=== PATIENT | female | born 2000 | race African-American/Black ===

== ENCOUNTER 2021-04-26 11:42 | Emergency (ER) | payer MEDICAID ==
[~2021-04-26] VITALS: Ht 167.6 cm; Wt 76.0 kg
[2021-04-26] MEDS ORDERED: LIDOCAINE 5% PATCH TOP SCH (13:00)
[2021-04-26] MEDS ORDERED: PANTOPRAZOLE SODIUM 40 MG/VIAL IV ONE (13:00)
[2021-04-26] MEDS ORDERED: ONDANSETRON HCL 4MG/2ML INJ IV ONE (13:00)
[2021-04-26] MEDS ORDERED: MORPHINE SULFATE 4 MG/ML CPJ (NOT FOR IM USE) IV ONE (13:00)
[2021-04-26] MEDS ORDERED: TOPUD PO (15:07)
[2021-04-26] MEDS ORDERED: IBUP-2028 MT (15:09)
[2021-04-26] MEDS ORDERED: LIDO1ADH23 TP (15:09)
[2021-04-26 15:10] LABS: BASOPHILS % 0.4 % (0.0-2.0); EOSINOPHILS % 0.2 % (0.0-5.0); HEMATOCRIT. 33.3 % (36.0-48.0); HEMOGLOBIN. 10.6 g/dL (12.0-16.0); LYMPHOCYTES % 19.9 % (20.0-50.0); MEAN CORPUSCULAR HEMOGLOBIN 23.3 pg (28.0-32.0); MEAN CORPUSCULAR VOLUME 73.3 fL (81.0-99.0); MEAN PLATELET VOLUME 9.5 fl (7.4-10.4); MONOCYTES % 8.5 % (2.0-8.0); PLATELET 233 x1000/uL (130-400); RED BLOOD CELL COUNT 4.54 mill/uL (4.2-5.4); RED CELL DISTRIBUTION WIDTH 12.8 % (11.6-14.6)
[2021-04-26 15:20] LABS: CHLORIDE 106 mEq/L (98-107)
[2021-04-26 15:23] LABS: HCG SCREEN POSITIVE
[2021-04-26 16:25] VITALS: BP 104/60
== END 2021-04-26 17:00 | disposition home or self-care (01) ==
LOC: ER 12:17
DX: O26.891 Other specified pregnancy related conditions, first trimester (principal); N83.292 Other ovarian cyst, left side; Z3A.08 8 weeks gestation of pregnancy
CPT/HCPCS: 36415; 71046; 76700; 76801; 76817; 80053; 83690; 84703; 85025; 86850; 86900; 86901; 93005; 96374; 96375; 99285; C9113; J2270; J2405

== ENCOUNTER 2021-07-05 | Emergency (ER) | payer MEDICAID ==
[~2021-07-05] VITALS: Ht 167.6 cm; Wt 86.0 kg
[~2021-07-05] MED LIST: LIDO1ADH23 TP; TOPUD PO
[2021-07-05 00:50] VITALS: BP 107/58
[2021-07-05] MEDS ORDERED: ACETAMINOPHEN 325MG TABLET PO ONE (01:00)
[2021-07-05 01:32] LABS: BASOPHILS % 0.2 % (0.0-2.0); EOSINOPHILS % 0.7 % (0.0-5.0); HEMATOCRIT. 32.1 % (36.0-48.0); HEMOGLOBIN. 10.6 g/dL (12.0-16.0); MEAN CORPUSCULAR HEMOGLOBIN 24.3 pg (28.0-32.0); MEAN CORPUSCULAR VOLUME 73.3 fL (81.0-99.0); MEAN PLATELET VOLUME 9.4 fl (7.4-10.4); MONOCYTES % 7.6 % (2.0-8.0); NEUTROPHILS % 69.5 % (40.0-76.0); PLATELET 198 x1000/uL (130-400); RED BLOOD CELL COUNT 4.38 mill/uL (4.2-5.4); RED CELL DISTRIBUTION WIDTH 13.1 % (11.6-14.6)
[2021-07-05 01:35] LABS: CHLORIDE 106 mEq/L (98-107)
[2021-07-05 01:46] LABS: CLARITY URINE TURBID (CLEAR); COLOR URINE YELLOW (YELLOW); KETONES URINE NEGATIVE (NEGATIVE); LEUKOCYTE ESTERASE URINE 2+ (NEGATIVE); NITRITE URINE NEGATIVE (NEGATIVE); OCCULT BLOOD URINE NEGATIVE (NEGATIVE); PROTEIN URINE NEGATIVE (NEGATIVE); SPECIFIC GRAVITY URINE 1.018 (1.005-1.030)
[2021-07-05 01:58] LABS: B-HCG QUANTITATIVE 17159 mIU/mL (<3)
[2021-07-05] MEDS ORDERED: CEPH500C2 MT (02:30)
== END 2021-07-05 03:10 | disposition home or self-care (01) ==
LOC: ER
DX: O26.892 Other specified pregnancy related conditions, second trimester (principal); O23.12 Infections of bladder in pregnancy, second trimester; Z3A.18 18 weeks gestation of pregnancy
CPT/HCPCS: 36415; 76805; 80053; 81003; 84702; 85025; 99284

== ENCOUNTER 2021-08-19 11:59 | Observation (INO) | payer MEDICAID ==
[~2021-08-19] VITALS: Ht 167.6 cm; Wt 85.7 kg
[~2021-08-19 11:59] MED LIST changes: +CEPH500C2 MT
[2021-08-19 13:11] LABS: CLARITY URINE CLEAR (CLEAR); COLOR URINE YELLOW (YELLOW); KETONES URINE NEGATIVE (NEGATIVE); LEUKOCYTE ESTERASE URINE NEGATIVE (NEGATIVE); NITRITE URINE NEGATIVE (NEGATIVE); OCCULT BLOOD URINE NEGATIVE (NEGATIVE); PH URINE 7.5 (4.5-8.0); PROTEIN URINE NEGATIVE (NEGATIVE); SPECIFIC GRAVITY URINE 1.014 (1.005-1.030); UROBILINOGEN URINE 0.2 E.U./dL (0.2-1.0)
[2021-08-19] MEDS: ACETAMINOPHEN 500MG TABLET PO NR (14:14)
== END 2021-08-19 15:00 | disposition home or self-care (01) ==
LOC: 8 EST LDRP 11:59
PROVIDERS: ADMIT Obstetrics & Gynecology; ATTEND Obstetrics & Gynecology
DX: O26.892 Other specified pregnancy related conditions, second trimester (principal); R10.30 Lower abdominal pain, unspecified; O62.9 Abnormality of forces of labor, unspecified; Z3A.24 24 weeks gestation of pregnancy
CPT/HCPCS: 59025; 76805; 81003; G0378; 99281; G0379

== ENCOUNTER 2021-09-12 15:15 | Observation (INO) | payer MEDICAID ==
[~2021-09-12] VITALS: Ht 167.6 cm; Wt 89.8 kg
[2021-09-12] MEDS ORDERED: PNV1TABL76 MT (16:13)
[2021-09-12] MEDS ORDERED: ONDANSETRON HCL 4MG/2ML INJ IV PRN (16:30)
[2021-09-12] MEDS ORDERED: LACTATED RINGERS 1,000 ML IV NR (16:30)
[2021-09-12 17:06] LABS: CHLORIDE 106 mEq/L (98-107)
[2021-09-12 17:11] LABS: HEMOGLOBIN. 11.9 g/dL (12.0-16.0); MEAN CORPUSCULAR HEMOGLOBIN 23.5 pg (28.0-32.0); MEAN CORPUSCULAR VOLUME 72.9 fL (81.0-99.0); MEAN PLATELET VOLUME 9.5 fl (7.4-10.4); PLATELET 187 x1000/uL (130-400); RED BLOOD CELL COUNT 5.08 mill/uL (4.2-5.4); RED CELL DISTRIBUTION WIDTH 13.1 % (11.6-14.6)
[2021-09-12 17:59] LABS: PLATELET ESTIMATE NORMAL
== END 2021-09-12 19:25 | disposition home or self-care (01) ==
LOC: 8EST 15:15 → 8 EST LDRP 16:07
PROVIDERS: ADMIT Obstetrics & Gynecology; ATTEND Obstetrics & Gynecology
DX: O21.2 Late vomiting of pregnancy (principal); O26.893 Other specified pregnancy related conditions, third trimester; R10.13 Epigastric pain; Z3A.28 28 weeks gestation of pregnancy
CPT/HCPCS: 36415; 59025; 80053; 85025; 96361; 96374; G0378; J2405; 99281

== ENCOUNTER 2021-10-24 23:08 | Observation (INO) | payer MEDICAID, MEDICARE ==
[~2021-10-24] VITALS: Ht 170.2 cm; Wt 92.5 kg
[~2021-10-24 23:08] MED LIST changes: -CEPH500C2 MT; -LIDO1ADH23 TP; +PNV1TABL76 MT; -TOPUD PO
[2021-11-02] MEDS ORDERED: TOPUD PO (07:37)
[2021-12-02] MEDS ORDERED: IBUP-2030 PO (06:00)
== END 2021-10-25 02:30 | disposition home or self-care (01) ==
LOC: 8 EST LDRP 23:08
PROVIDERS: ADMIT Obstetrics & Gynecology; ATTEND Obstetrics & Gynecology
DX: O26.853 Spotting complicating pregnancy, third trimester (principal); O62.9 Abnormality of forces of labor, unspecified; Z3A.34 34 weeks gestation of pregnancy
CPT/HCPCS: 59025; 76815; 76818; 99281; G0378

== ENCOUNTER 2022-05-23 15:26 | Emergency (ER) | payer MEDICAID ==
[~2022-05-23] VITALS: Ht 167.6 cm; Wt 80.0 kg
[~2022-05-23 15:26] MED LIST changes: +IBUP-2030 PO; +TOPUD PO
[2022-05-23 15:34] VITALS: BP 106/52
[2022-05-23] MEDS ORDERED: IBUP-2028 PO (17:27)
== END 2022-05-23 17:55 | disposition home or self-care (01) ==
LOC: ER 15:26
DX: S09.90XA Unspecified injury of head, initial encounter (principal); W22.8XXA Striking against or struck by other objects, initial encounter; Y93.89 Activity, other specified; Y92.89 Other specified places as the place of occurrence of the external cause; Y99.8 Other external cause status
CPT/HCPCS: 81025; 99284

== ENCOUNTER 2022-11-18 22:55 | Emergency (ER) | payer MEDICAID, OTHER ==
[~2022-11-18] VITALS: Ht 167.6 cm; Wt 88.0 kg
[~2022-11-18 22:55] MED LIST changes: +IBUP-2028 PO
[2022-11-18 23:06] VITALS: O2SAT 98
[2022-11-19 00:45] VITALS: BP 117/49
[2022-11-19] MEDS ORDERED: KETOROLAC 30MG/ML VIAL IM ONE (00:45)
[2022-11-19] MEDS ORDERED: CYCL10TA21 MT (02:21)
[2022-11-19] MEDS ORDERED: NAP5EC MT (02:21)
[2022-11-19 02:37] VITALS: PULSE 82; RESP 18; TEMP 99
== END 2022-11-19 02:38 | disposition home or self-care (01) ==
LOC: ER 23:37
DX: M25.512 Pain in left shoulder (principal)
CPT/HCPCS: 99283; 81025; 73030; 96372; J1885

== ENCOUNTER 2023-12-31 14:48 | Emergency (ER) | payer OTHER ==
[~2023-12-31] VITALS: Ht 165.1 cm; Wt 68.0 kg
[~2023-12-31 14:48] MED LIST changes: +CYCL10TA21 MT; +NAP5EC MT
[2023-12-31 14:58] VITALS: O2SAT 97
[2023-12-31] MEDS: METHYLPREDNISOLONE SOD SUCC 125MG/2ML (ACT-O-VIAL) IM STA (16:17)
[2023-12-31] MEDS: FAMOTIDINE 20MG TABLET PO ONE (16:17)
[2023-12-31] MEDS: DIPHENHYDRAMINE 50MG/ML VIAL IM ONE (16:17)
[2023-12-31 16:30] VITALS: BP 114/71; PULSE 83; RESP 19; TEMP 98.3
[2023-12-31] MEDS ORDERED: P50 MT (16:32)
[2023-12-31] MEDS ORDERED: FAMO40TA7 MT (16:32)
[2023-12-31] MEDS ORDERED: DIPH25CA83 PO (16:32)
== END 2023-12-31 16:40 | disposition home or self-care (01) ==
LOC: ER 14:48
DX: L50.9 Urticaria, unspecified (principal); L29.9 Pruritus, unspecified; Z79.899 Other long term (current) drug therapy
CPT/HCPCS: 81025; 96372; 99284; J1200; J2919; Z7610